=== PATIENT | female | born 1945 | race Caucasian/White ===

== ENCOUNTER 2016-09-04 15:50 | Emergency (ER) | payer OTHER ==
--- NOTE | 2016-09-04 16:19 | EDPHY ---
H & P Time Seen by Provider: 09/04/16 16:05 HPI/ROS: CHIEF COMPLAINT: Right shoulder pain HISTORY OF PRESENT ILLNESS: This 71-year-old woman has a history of a Saint Adryan mitral valve and is on Coumadin with the most recent INR being 2.9. She also has a history of intracranial hemorrhage. She was walking her large dog today when the dog started pulling and she was pulled over hitting her chin on the ground. On the way here she got blurry vision and difficulty speaking but that is since resolved. Currently she complains primarily of pain in her right shoulder which is mild at rest but severe with any movement or rotation. Started just after the fall. Does not radiate. Not associated with abdominal pain or weakness or numbness in the right hand. REVIEW OF SYSTEMS: Eye: HPI, normal vision now. ENT: no sore throat, normal movement of jaw, no loose teeth, does not think she broke a bone in her face or her jaw. Cardiac: no chest pain or syncope Pulmonary: no cough or SOB Abdomen: no vomiting, diarrhea, abdominal pain Musculoskeletal: no back pain or neck pain Skin: Chin abrasion Neuro: no headache Constitutional: no fever : no urinary symptoms A comprehensive 10 point review of systems is otherwise negative aside from elements mentioned in the history of present illness. PAST MEDICAL HISTORY: Tetanus up-to-date. Breast cancer and intracranial hemorrhage and Saint Adryan mitral valve on Coumadin. Retinal detachment. Social history: Here with spouse General Appearance: Alert and conversant, cooperative. Eyes: No scleral icterus. Extraocular motion intact. ENT, Mouth: Normal mucous membranes. No hemotympanum. No facial bony tenderness. Can prevent me from pulling at tongue blade out from her mouth by clenching it between her teeth. No tenderness on the jaw. Respiratory: Normal respiratory effort, breath sounds equal, lungs are clear to auscultation. Cardiovascular: Regular rate and rhythm. Gastrointestinal: Abdomen is soft and non tender. Specifically nontender over the liver. Neurological: Alert and oriented x3. Normally conversant. Face symmetric, normal movement and sensation in all extremities. Skin: Central chin abrasion Musculoskeletal: No cervical thoracic or lumbar spine tenderness to palpation. She has right upper arm and shoulder soreness to palpation with swelling but good range of motion of the right elbow wrist and hand. Normal radial pulse in the right wrist and normal motor and sensory in the right hand. Psychiatric: Not agitated. Emergency Department course/MDM: Clearly mechanical without syncope. Plan for head CT with trauma above the clavicles and anticoagulated. X-ray of the right shoulder and humerus. Cervical spine cleared clinically by myself. 1650: Results discussed with the patient and her primary care physician Dr. Hinton who was here in the emergency department. Oral acetaminophen, specifically does not want stronger pain medication. Sling right shoulder. Dr. Hinton will arrange orthopedic follow-up. Smoking Status: Never smoked Constitutional: Initial Vital Signs Temperature (C) 36.4 C 09/04/16 16:01 Heart Rate 65 09/04/16 16:01 Respiratory Rate 16 09/04/16 16:01 Blood Pressure 95/55 L 09/04/16 16:01 O2 Sat (%) 92 09/04/16 16:01 O2 Delivery Mode Room Air Allergies/Adverse Reactions: cefaclor [From Ceclor] Allergy (Verified 03/25/09 12:07) Home Medications: Medication Instructions Recorded COUMADIN 03/25/09 CRESTOR 03/25/09 Lisinopril 03/25/09 METOPROLOL/HYDROCHLOROTHIAZIDE 03/25/09 SYNTHROID 03/25/09 Medical Decision Making - Diagnostics Imaging Results: Imaging Impressions Head CT 09/04/16 16:14 Impression: 1. 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 2. No acute hemorrhage, hydrocephalus, or mass effect. 3. Cerebrovascular atherosclerosis. 4. No definite acute infarct. 5. Mild atrophy and mild microvascular ischemic gliosis. 6. No epidural or subdural hematoma. Findings and recommendations discussed with emergency department physician, Bryn Conrad MD at 1638 hours on September 04, 2016. Final report concurs with initial preliminary interpretation. Shoulder X-Ray 09/04/16 16:14 Impression: Comminuted right humeral head and neck fracture with lateral displacement of the humeral head greater tuberosity fragment. Humerus X-Ray 09/04/16 16:15 Impression: Comminuted, slightly displaced right humeral head and neck fracture. Right shoulder x-ray personally reviewed shows humeral head fracture with a displaced fragment. Negative noncontrast head CT per Dr. Lopez, old infarcts but no bleed or skull fracture. Differential Diagnosis: Differential for right shoulder trauma considered including but not limited to humerus fracture, AC separation, shoulder dislocation, clavicle injury. - Data Points Laboratory Results: Laboratory Results 09/04/16 16:15 09/04/16 09/04/16 16:15 16:15 PT 29.1 SEC H SEC (12.0-15.0) INR 2.71 H (0.83-1.16) Sodium 141 mEq/L mEq/L (134-144) Potassium 3.9 mEq/L mEq/L (3.5-5.2) Chloride 109 mEq/L mEq/L (97-110) Carbon Dioxide 28 mEq/l mEq/l (22-31) Anion Gap 4 mEq/L L mEq/L (8-16) BUN 19 mg/dL mg/dL (7-23) Creatinine 0.8 mg/dL mg/dL (0.6-1.0) Estimated GFR > 60 Glucose 122 mg/dL H mg/dL (70-100) Calcium 10.2 mg/dL mg/dL (8.5-10.4) Medications Given: Discontinued Medications Acetaminophen (Tylenol) 650 mg PO EDNOW ONE Stop: 09/04/16 16:53 Last Admin: 09/04/16 17:15 Dose: 650 mg Departure - Departure Disposition: Home, Routine, Self-Care Clinical Impression: Abrasion of chin Qualifiers: Encounter type: initial encounter Qualified Code(s): S00.81XA - Abrasion of other part of head, initial encounter Fracture of humeral head, right, closed Qualifiers: Encounter type: initial encounter Qualified Code(s): S42.291A - Other displaced fracture of upper end of right humerus, initial encounter for closed fracture Condition: Good Instructions: Abrasion (ED), Proximal Humerus Fracture (ED) Additional Instructions: Sling for comfort. Activity as per follow-up regulatory compliance specialist. Referrals: Marco Hinton MD [Primary Care Provider] - As per Instructions Sagar Bonilla MD [Medical Doctor] - As per Instructions (Follow-up with this orthopedic surgeon or an orthopedic surgeon arranged by Dr. Hinton later this week for further evaluation of your shoulder fracture.)
[2016-09-04 16:35] LABS: INR 2.71 (0.83-1.16); PROTIME(PATIENT) 29.1 SEC (12.0-15.0)
[2016-09-04 16:37] LABS: ANION GAP 4 mEq/L (8-16); CALCIUM 10.2 mg/dL (8.5-10.4); CARBON DIOXIDE 28 mEq/l (22-31); CHLORIDE 109 mEq/L (97-110); CREATININE 0.8 mg/dL (0.6-1.0); GLOMERULAR FILTRATION RATE > 60; GLUCOSE 122 mg/dL (70-100); POTASSIUM 3.9 mEq/L (3.5-5.2); SODIUM 141 mEq/L (134-144)
[2016-09-04] MEDS ORDERED: ACETAMINOPHEN 325 MG TAB PO ONE (16:52)
[2016-09-04 17:50] VITALS: BP 132/79; PULSE 69; RESP 18; TEMP 98.4; O2SAT 96
== END 2016-09-04 17:46 | disposition home or self-care (01) ==
DX: S42.291A Other displaced fracture of upper end of right humerus, initial encounter for closed fracture (principal); S00.81XA Abrasion of other part of head, initial encounter; Z85.3 Personal history of malignant neoplasm of breast; Z79.01 Long term (current) use of anticoagulants; W01.198A Fall on same level from slipping, tripping and stumbling with subsequent striking against other object, initial encounter; Y93.K1 Activity, walking an animal
CPT/HCPCS: 70450; 73030; 73060; 99285; A4565

== ENCOUNTER 2018-07-16 20:26 | Emergency (ER) | payer OTHER ==
--- NOTE | 2018-07-16 21:35 | CPEKG ---
Test Reason : OPEN Blood Pressure : / mmHG Vent. Rate : 083 BPM Atrial Rate : 082 BPM P-R Int : 264 ms QRS Dur : 103 ms QT Int : 383 ms P-R-T Axes : 038 073 058 degrees QTc Int : 450 ms Sinus rhythm Prolonged [place] interval Leftrial enlnt Confirmed by Jacques Powell ([id number]) on 07/16/2018 9:34:22 PM Referred By: PHYSICIAN ED Confirmed By:Jacques Powell
[2018-07-16 21:49] LABS: PLATELET COUNT 233 10^3/uL (150-400)
--- NOTE | 2018-07-16 21:50 | EDPHY ---
H & P Stated Complaint: R shoulder pain, nausea, indigestion, starting this AM getting worse, hx Source: Patient, Family - Personal History Current Tetanus Diphtheria and Acellular Pertussis (TDAP): Yes - Medical/Surgical History Hx Asthma: No Hx Chronic Respiratory Disease: No Hx Diabetes: No Hx Cardiac Disease: Yes Hx Renal Disease: No Hx Cirrhosis: No Hx Alcoholism: No Hx HIV/AIDS: No Hx Splenectomy or Spleen Trauma: No Other PMH: BREAST CA, ABD SURGERY, MITRAL VALVE, hemorrhagic STROKE,. currently being treated for retinal detachment - Social History Smoking Status: Never smoked Alcohol Use: None Drug Use: None Time Seen by Provider: 07/16/18 21:32 HPI/ROS: CHIEF COMPLAINT: Chest pain, Right shoulder pain and nausea HISTORY OF PRESENT ILLNESS: Patient is a 72-year-old female with a history of mitral valve replacement with Saint Adryan's valve on Coumadin. She reports waking up this morning with mild chest discomfort that seemed to radiate to her right shoulder. Throughout the day it is gotten gradually worse. It hurts when she moves or elevates her right shoulder. She reports a history of a proximal humerus fracture on that side but states that she did not suffer any new injury and the pain seems different. She had a dinner libertarian this evening and after eating felt nauseous. She and her decided to come to the ER. No lightheadedness. No diaphoresis. Not worsened with exertion. No history of ischemic cardiac disease. She has had partial colectomy, appendectomy and glass wound to the abdomen in the past but does still have her gallbladder. She has not had any cough, fever, sore throat or shortness of breath. She has had bowel movement and is able to pass gas. No recent leg pain or swelling. She states that her INR was 2.9 this week. is worried about a DVT in her arm. No arm swelling. No numbness or weakness. Severity: Moderate Modifying factors: Gradually worsening REVIEW OF SYSTEMS: Constitutional: denies: chills, fever, recent illness, recent injury EENTM: denies: blurred vision, double vision, nose congestion Respiratory: denies: cough, shortness of breath Cardiac: See HPI Gastrointestinal/Abdominal: See HPI denies: abdominal pain, diarrhea, vomiting , blood streaked stools Genitourinary: denies: dysuria, frequency, hematuria, pain Musculoskeletal: denies: joint pain, muscle pain Skin: denies: lesions, rash, jaundice, bruising Neurological: denies: headache, numbness, paresthesia, tingling, dizziness, weakness Hematologic/Lymphatic: denies: blood clots, easy bleeding, easy bruising Immunologic/allergic: denies: HIV/AIDS, transplant 10 systems reviewed and negative except as noted EXAM: GENERAL: Well-appearing, well-nourished and in no acute distress. HEAD: Atraumatic, normocephalic. EYES: Pupils equal round and reactive to light, extraocular movements intact, sclera anicteric, conjunctiva are normal. ENT: TMs normal, nares patent, oropharynx clear without exudates. Moist mucous membranes. NECK: Normal range of motion, supple without lymphadenopathy or JVD. LUNGS: Breath sounds clear to auscultation bilaterally and equal. No wheezes rales or rhonchi. HEART: Regular rate and rhythm without murmurs, rubs or gallops. ABDOMEN: Soft, nontender, normoactive bowel sounds. No guarding, no rebound. No masses appreciated. BACK: No CVA tenderness, no spinal tenderness, step-offs or deformities EXTREMITIES: Some pain with range of motion of right shoulder. No pain with palpation. No swelling. No erythema, no pitting or edema. No clubbing or cyanosis. Equal pulses in both arms NEUROLOGICAL: Cranial nerves II through XII grossly intact. Normal speech, normal gait. 5/5 strength, normal movement in all extremities, normal sensation , normal reflexes PSYCH: Normal mood, normal affect. SKIN: Warm, dry, normal turgor, no visible rashes or lesions. (aJcques Powell) Constitutional: Initial Vital Signs Temperature (C) 36.8 C 07/16/18 20:27 Heart Rate 84 07/16/18 20:27 Respiratory Rate 17 07/16/18 20:27 Blood Pressure 173/92 H 07/16/18 20:27 O2 Sat (%) 97 07/16/18 20:27 O2 Delivery Mode Room Air Allergies/Adverse Reactions: cefaclor [From Ceclor] Allergy (Verified 07/16/18 20:26) Home Medications: Medication Instructions Recorded COUMADIN 03/25/09 Lisinopril 03/25/09 METOPROLOL/HYDROCHLOROTHIAZIDE 03/25/09 SYNTHROID 03/25/09 Medical Decision Making - Diagnostics Imaging: Discussed imaging studies w/ call or contact centre manager Radiologist - Diagnostics EKG Interpretation: An EKG obtained and was read and documented in trace view. Please see trace view for full reading and report. Sinus rhythm, not P-wave which patient states is baseline after her surgery. (Jacques Powell) ED Course/Re-evaluation: 2341: Patient was signed over to me at 11:00 p.m. Shift change follow-up her CT angiogram of the chest as well as ultrasounds. She had an ultrasound of her right upper extremity ultrasound of her gallbladder and a CT angiogram of the chest that are all unremarkable no evidence of PE no evidence of gallbladder disease and no evidence of DVT. I did go and discuss the results of her imaging with her. She is comfortable this and would like to go home. On exam she has pretty obvious musculoskeletal right shoulder discomfort. It hurts when she raises her arm against resistance as well as lateral abduction against resistance. I do believe she has a shoulder strain. I do recommend she takes Tylenol Motrin , rest, and return to the emergency room if there is any worsening symptoms. She denies any chest pain or shortness of breath, denies chest pressure, denies pleuritic pain. She is eager for discharge. Return precautions discussed with her she is comfortable this plan. (Jarred Lemus) Patient does have a few white cells in her urine. She has not noticed any frequency, dysuria, rash, suprapubic pain etc. CT angio and ultrasounds are pending. Care transferred to Dr. Lemus at 11:00 p.m.. (Jacques Powell) Differential Diagnosis: Partial list of the Differential diagnosis considered include but were not limited to; musculoskeletal pain, DVT, PE and although unlikely based on the history and physical exam, I also considered acute coronary disease, pneumonia, dissection. (Jacques Powell) - Data Points Laboratory Results: Laboratory Results 07/16/18 20:41 07/16/18 20:41 Point of Care Test Results: Chemistry 07/16/18 20:43 POC Troponin I 0.00 ng/mL ng/mL (0.00-0.08) Departure - Departure Disposition: Home, Routine, Self-Care Clinical Impression: Right shoulder strain Qualifiers: Encounter type: initial encounter Qualified Code(s): S46.911A - Strain of unspecified muscle, fascia and tendon at shoulder and upper arm level, right arm , initial encounter Condition: Good Instructions: Rotator Cuff Injury (ED) Additional Instructions: 1. Return to the emergency room if you have worsening symptom this includes worsening pain, not doing well 2. Please follow up with your primary care doctor Referrals: Marco Hinton MD [Primary Care Provider] - As per Instructions
[2018-07-16 21:58] LABS: INR 2.52 (0.83-1.16); PROTIME(PATIENT) 25.9 SEC (12.0-15.0)
[2018-07-16] MEDS ORDERED: IOPAMIDOL (ISOVUE 370) 100 ML BTL IV ONE (22:42)
[2018-07-16 23:08] VITALS: BP 159/82
== END 2018-07-16 23:49 | disposition home or self-care (01) ==
DX: S46.911A Strain of unspecified muscle, fascia and tendon at shoulder and upper arm level, right arm, initial encounter (principal); R07.9 Chest pain, unspecified; R11.0 Nausea; Z79.01 Long term (current) use of anticoagulants; Z87.81 Personal history of (healed) traumatic fracture
CPT/HCPCS: 71046; 71275; 76705; 93005; 93971; 99285; Q9967; 84484-ER